=== PATIENT | female | born 1995 | race African-American/Black ===

== ENCOUNTER 2018-03-09 17:32 | Emergency (ER) | payer OTHER ==
[2018-03-09] MEDS ORDERED: LIDOCAINE-EPINEPH-TETRACAINE 3 ML SYRINGE TOP STA (18:04)
[2018-03-09] MEDS ORDERED: LIDOCAINE 2%-EPI 1:100000 20 ML MDV SUBQ STA (18:04)
[2018-03-09] MEDS ORDERED: IBUPROFEN 800 MG TABLET PO STA (18:06)
--- NOTE | 2018-03-09 18:07 | ED Physician Documentation ---
History of Present Illness - Stated complaint Stated Complaint: RT ARMPIT PX - Chief complaint Chief Complaint: Ext Problem - History obtained from History obtained from: Patient - History of Present Illness Timing: How many days ago (2) Pain level max: 8 Pain level now: 8 Improved by: nothing Worsened by: palpation - Additonal information Additional information: Patient is a 22-year-old female who presents to the emergency department with right armpit swelling for the past 2-3 days. Increasing pain today. has not had similar symptoms previously. No fevers. 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 - Present Medications Home Medications: Ambulatory Orders Medication Instructions Recorded Confirmed Bcp 03/09/18 Hydrocodone/Acetaminophen 1 - 2 each PO Q6H PRN #14 tablet 03/09/18 [Hydrocodon-Acetaminophen 5-325] Sulfamethox/Trimeth 800/160 1 each PO BID #14 tablet 03/09/18 [Bactrim Ds 800/160] - Allergies Allergies/Adverse Reactions: Allergies Allergy/AdvReac Type Severity Reaction Status Date / Time No Known Drug Allergies Allergy Verified 03/09/18 17:41 - Social History Does the pt smoke?: No Smoking Status: Never smoker Does the pt drink ETOH?: No Does the pt have substance abuse?: No - Immunizations Immunizations are current?: Yes PD ED PE NORMAL - Vitals Vital signs reviewed: Yes - General General: Alert and oriented X 3, No acute distress - HEENT HEENT: Moist mucous membranes - Neck Neck: Supple, no meningeal sign - Cardiac Cardiac: RRR - Respiratory Respiratory: No respiratory distress, Clear bilaterally - Derm Derm: Warm and dry - Extremities Extremities: Other (R axilla - 2x2cm indurated, erythematous, fluctuant area) - Neuro Neuro: Alert and oriented X 3 Results - Vitals Vitals: Vital Signs - 24 hr 03/09/18 03/09/18 17:39 19:31 Temperature 36 C L 37.0 C Heart Rate 82 69 Respiratory 18 18 Rate Blood Pressure 118/64 97/54 L O2 Saturation 100 100 Oxygen O2 Source Room air - Labs Labs: Microbiology 03/09/18 19:20 Wound Culture - Preliminary Abscess Procedures - Abscess I&D (location) R axilla Preparation: Confirmed with ultrasound, Alcohol, Lidocaine 2 %, With epi, LET Incision: Incised with scalpel, Purulent drainage, Packed, Culture obtained Other: Pt tolerated well, Dressing applied, Antibiotic prescribed PD MEDICAL DECISION MAKING - ED course Complexity details: considered differential, d/w patient ED course: 22-year-old female with a right axillary abscess. This was incised and drained. Tolerated well. Will place on antibiotics and follow-up closely with her doctor. Patient counseled regarding signs and symptoms for which I believe and urgent re-evaluation would be necessary. Patient with good understanding of and agreement to plan and is comfortable going home at this time This document was made in part using voice recognition software. While efforts are made to proofread this document, sound alike and grammatical errors may occur. Departure - Departure Disposition: 01 Home, Self Care Clinical Impression: Abscess of axilla, right Condition: Good Instructions: ED Abscess IandD Follow-Up: RAHEL CALI PA-C [Primary Care Provider] - Within 3 Days Prescriptions: Hydrocodone/Acetaminophen [Hydrocodon-Acetaminophen 5-325] 1 - 2 each PO Q6H PRN #14 tablet PRN Reason: pain Sulfamethox/Trimeth 800/160 [Bactrim Ds 800/160] 1 each PO BID #14 tablet Comments: Take all antibiotics until gone. Return if you worsen. You should follow-up with your doctor in 2-3 days for a wound check. You can also run warm water over the area 2-3 times daily to help it continue to drain. Do not drink alcohol or drive while on narcotic pain medicine. Note that many narcotic pain relievers also contain tylenol/acetaminophen. Please ensure that your total dose of acetaminophen from all sources does not exceed 3 grams (3000mg) per day. You may constipated on this medication, take a stool softener such as "Colace" twice a day while you are on it. Also recommend a ifju-dbf-odzenab laxative such as senna or MiraLAX any day that you do not have a bowel movement. If you received narcotic pain medication in the emergency department, do not drive or operate machinery for the next 24 hours. Discharge Date/Time: 03/09/18 19:31
[2018-03-09 19:32] VITALS: BP 97/54
== END 2018-03-09 19:31 | disposition home or self-care (01) ==
LOC: ED 17:32
DX: L02.411 Cutaneous abscess of right axilla (principal)
CPT/HCPCS: 10060; 87070; 87205; 99283; A9270

== ENCOUNTER 2018-08-29 15:17 | Emergency (ER) | payer OTHER ==
[2018-08-29 15:24] VITALS: BP 127/81
--- NOTE | 2018-08-29 15:34 | ED Physician Documentation ---
PD HPI CHEST PAIN - Stated complaint Stated Complaint: CHEST PAIN/SOA - Chief complaint Chief Complaint: Cardiac - History obtained from History obtained from: Patient - History of Present Illness Timing - onset: Other (Previously healthy 23-year-old woman has had 5 to 7 days of pleuritic sided left-sided chest pain that is sharp and worse with deep breathing and coughing. She had a cough today that is nonproductive. She is a little short of breath and fatigued with it. She has Nexplanon in place. She denies recent travel, calf pain, or pedal edema. No history of heart or lung problems.) Review of Systems Constitutional: reports: Fatigue. denies: Fever, Chills Ears: denies: Ear pain Nose: reports: Rhinorrhea / runny nose, Congestion Throat: denies: Sore throat Cardiac: reports: Chest pain / pressure. 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 - Present Medications Home Medications: Ambulatory Orders Medication Instructions Recorded Confirmed Bcp 03/09/18 Ibuprofen [Motrin] 800 mg PO Q8H PRN #30 tablet 08/29/18 - Allergies Allergies/Adverse Reactions: Allergies Allergy/AdvReac Type Severity Reaction Status Date / Time No Known Drug Allergies Allergy Verified 08/29/18 15:24 - Social History Does the pt smoke?: No Smoking Status: Never smoker Does the pt drink ETOH?: No Does the pt have substance abuse?: No - Immunizations Immunizations are current?: Yes PD ED PE NORMAL - Vitals Vital signs reviewed: Yes - General General: Alert and oriented X 3, No acute distress - HEENT HEENT: PERRL, EOMI - Neck Neck: Supple, no meningeal sign, No bony TTP - Cardiac Cardiac: RRR, No murmur - Respiratory Respiratory: No respiratory distress, Clear bilaterally - Abdomen Abdomen: Non tender - Extremities Extremities: No edema, No calf tenderness / cord - Neuro Neuro: Alert and oriented X 3, Normal speech - Psych Psych: Normal mood, Normal affect Results - Vitals Vitals: Vital Signs - 24 hr 08/29/18 08/29/18 15:22 15:27 Heart Rate 103 H Respiratory 20 20 Rate Blood Pressure 127/81 H O2 Saturation 100 Oxygen O2 Source Room air - EKG (time done) 1538 Rate: Rate (enter#) (93) Rhythm: NSR [place]: Normal Intervals: Normal PA QRS: Normal Ischemia: Non specific changes Computer interpretation: Agree with computer - Labs Labs: Laboratory Tests 08/29/18 08/29/18 15:41 15:41 D-Dimer 219.6 Troponin I < 0.04 - Rads (name of study) 2v chest Radiology: EMP read contemporaneously (normal) PD MEDICAL DECISION MAKING - ED course ED course: 23-year-old woman presents with pleuritic left-sided chest pain. Also has a cough. She was modestly tachycardic but her d-dimer and troponin were negative and there is no acute disease on her chest x-ray. Conservative care was advised. Departure - Departure Disposition: Home, Self Care Clinical Impression: Chest wall pain Condition: Good Record reviewed to determine appropriate education?: Yes Instructions: ED Strain Chest Wall Prescriptions: Ibuprofen [Motrin] 800 mg PO Q8H PRN #30 tablet PRN Reason: PAIN &/OR FEVER Comments: Call your doctor to arrange a follow-up appointment, make the next available appointment. In the interim, return anytime if worse or if new symptoms develop. Forms: Activity restrictions
--- NOTE | 2018-08-29 16:13 | XRAY Report ---
Reason: cough cp Procedure Date: 08/29/2018 Accession Number: [id number] / [id number] Procedure: XR - Chest 2 View X-Ray CPT Code: 12013 FULL RESULT: EXAM: CHEST RADIOGRAPHY EXAM DATE: 08/29/2018 04:06 PM. CLINICAL HISTORY: Cough cp. COMPARISON: None. TECHNIQUE: 2 views. FINDINGS: Lungs/Pleura: No focal opacities evident. No pleural effusion. No pneumothorax. Normal volumes. Mediastinum: Heart and mediastinal contours are unremarkable. Other: None. IMPRESSION: Normal 2-view chest radiography. [facility]
== END 2018-08-29 16:32 | disposition home or self-care (01) ==
LOC: ED 15:17
DX: R07.89 Other chest pain (principal); Z97.8 Presence of other specified devices
CPT/HCPCS: 36415; 71046; 84484; 85379; 93005; 99283; 99284